=== PATIENT | female | born 1980 | race Caucasian/White ===

== ENCOUNTER → 2022-06-22 08:24 | Outpatient (BNVA) | payer OTHER, SELFPAY | PROVIDERS: PCP Pediatrics; Visit Provider Physician Assistant Surgical | DX: Z13.89 Encounter for screening for other disorder (principal) ==

== ENCOUNTER → 2022-06-29 10:18 | Outpatient (BNVA) | payer OTHER, SELFPAY | PROVIDERS: PCP Pediatrics; Visit Provider Physician Assistant Surgical | DX: Z13.89 Encounter for screening for other disorder (principal) ==

== ENCOUNTER 2022-07-09 12:48 | Outpatient (REF) | payer OTHER, SELFPAY ==
[2022-07-09 13:07] LABS: MANUAL DIFF FLAG NO
[2022-07-09 13:12] LABS: Basophils Percent Auto 0.4 % (0-2); Eosinophils Absolute Auto 0.2 X10*3/uL (0.0-0.4); Eosinophils Percent Auto 1.7 % (0-4); Hematocrit 39.2 % (37.0-47.0); Hemoglobin 13.3 g/dl (12.0-16.0); Imm Gran Abs Auto 0.04 X10*3/uL (0.00-0.03); Imm Gran Pct Auto 0.4 % (0.0-0.4); Lymphocytes Absolute Auto 3.2 X10*3/uL (1.2-4.9); Lymphocytes Percent Auto 35.8 % (20-40); Mean Corpuscular HGB Conc 33.9 g/dl (31.0-35.0); Mean Corpuscular Hemoglobin 29.5 pg (27.0-33.0); Mean Corpuscular Volume 86.9 fL (80.0-98.0); Mean Platelet Volume 10.2 fL (9.4-12.3); Monocytes Absolute Auto 0.7 X10*3/uL (0.1-1.2); Monocytes Percent Auto 7.8 % (2-11); Neutrophils Absolute Auto 4.8 x10*3/uL (2.0-8.3); Neutrophils Percent Auto 53.9 % (45-73); Platelet Count 359 X10*3/uL (160-400); Red Blood Count 4.51 X10*6/uL (4.20-5.50); Red Cell Distribution Width 12.4 % (11.0-16.0); White Blood Count 8.9 X10*3/uL (4.8-10.8)
[2022-07-09 13:19] LABS: Estimated Average Glucose 146 mg/dL; Hemoglobin A1c % 6.7 %
[2022-07-09 13:43] LABS: C Reactive Protein 0.99 mg/dL (< or = 0.50); Iron 64 mcg/dL (30-160); Percent Iron Saturation 18 % (15-50); Total Iron Binding Capacity 346 mcg/dL (228-428); Unsaturated Iron Binding 282 ug/dL
[2022-07-09 14:13] LABS: Ferritin 26 ng/mL (10-122); Folate 13.2 ng/mL (> or = 4.0); Vitamin B12 483 pg/mL (200-900); Vitamin D 25-OH Total 17.5 ng/mL (>30)
[2022-07-11 13:49] LABS: Calcium (PTHI) 9.3 mg/dL (8.6-10.2); PTHI 40 pg/mL (16-77)
[2022-07-12 05:38] LABS: Zinc 69 mcg/dL (60-130)
[2022-07-15 00:49] LABS: Vitamin A 53 mcg/dL (38-98)
[2022-07-15 13:28] LABS: Vitamin B1 8 nmol/L (8-30)
== END 2022-07-09 12:49 | disposition home or self-care (01) ==
LOC: HO.LAB 12:48
PROVIDERS: PCP Pediatrics; Visit Provider Physician Assistant Surgical
DX: E66.01 Morbid (severe) obesity due to excess calories (principal); E63.9 Nutritional deficiency, unspecified
CPT/HCPCS: 36415; 82306; 82607; 82728; 82746; 83036; 83540; 83970; 84425; 84590; 84630; 85025; 86140

== ENCOUNTER → 2022-07-30 08:27 | Outpatient (BNVA) | payer OTHER, SELFPAY | PROVIDERS: PCP Pediatrics; Visit Provider Dietitian, Registered | DX: E66.9 Obesity, unspecified (principal); Z68.41 Body mass index [BMI] 40.0-44.9, adult; Z71.3 Dietary counseling and surveillance | CPT/HCPCS: 97802 ==

== ENCOUNTER → 2022-08-28 10:02 | Outpatient (BNVA) | payer OTHER, SELFPAY | PROVIDERS: PCP Pediatrics; Visit Provider Physician Assistant Surgical ==

== ENCOUNTER → 2022-10-04 12:57 | Outpatient (BNVA) | payer OTHER, SELFPAY | PROVIDERS: PCP Pediatrics; Visit Provider Physician Assistant Surgical ==